=== PATIENT | female | born 1970 | race African-American/Black ===

== ENCOUNTER 2016-12-17 17:43 | Emergency (ER) | payer MEDICAID ==
[~2016-12-17] VITALS: Ht 170.2 cm; Wt 82.7 kg
[2016-12-17 17:44] VITALS: BP 130/68; PULSE 77; RESP 16; TEMP 98.2; O2SAT 96
[2016-12-17] MEDS ORDERED: ADVA500A INH (17:54)
[2016-12-17] MEDS ORDERED: ALBUAER3 INH (17:54)
[2016-12-17] MEDS ORDERED: methylPREDNISolone SOD SUCC 125 MG/2 ML VIAL IM ONE (18:15)
[2016-12-17] MEDS ORDERED: PRED20 PO (18:20)
--- NOTE | 2016-12-17 18:20 | PD ---
HPI Chief Complaint: Respiratory Symptoms Time Seen by Provider: 17:56 Travel History International Travel<30 days: No Contact w/Intl Traveler<30days: No Traveled to known affect area: No History of Present Illness HPI 46-year-old female with history of anxiety, asthma here with complaint of increasing shortness of breath. [facility] and is exposed to tobacco which she typically is not. Has been having increasing wheezing, shortness of breath. Minimal to no cough. No fevers or chills. She feels tight throughout the chest. She has been using her MDI without much improvement of her symptoms prompting ER visit. [facility] Past Medical History Asthma: Yes Hypertension: Yes (HYPOTENSION) Respiratory: Yes (ASTHMA) Influenza Vaccination: Yes ?: Not LMP: NOV 14 2016 Past Surgical History Gynecologic Surgery: Yes (OVARIAN CYSTS) Other Surgery: Yes (BILATERAL FEET SURGERIES) Social History Alcohol Use: No Tobacco Use: No Substance Use: No Allergies-Medications (Allergen,Severity, Reaction): Coded Allergies: Benadryl (Verified Allergy, Severe, RESPIRATORY DISTRESS, 12/17/16) Reported Meds & Prescriptions Reported Meds & Active Scripts Active Prednisone 20 Mg Tab 40 Mg PO DAILY 5 Days Take 40 mg (2 tablets) daily for 5 days Reported Proair Hfa 8.5 GM Inh (Albuterol Sulfate) 90 Mcg/Act Aer 2 Puff INH Q4-6H PRN 108 mcg/actuation Advair Diskus Inh (Fluticasone-Salmeterol Inh) 500-50 Mcg/Blist Aer 1 Puff INH BID Rinse mouth after use. Review of Systems Except as stated in HPI: all other systems reviewed are Neg Physical Exam Narrative GENERAL: Tearful female in no acute distress SKIN: Warm and dry. HEAD: Normocephalic. EYES: No scleral icterus. No injection or drainage. ENT: Mucous membranes pink and moist. NECK supple CARDIOVASCULAR: Regular rate and rhythm. No murmur appreciated. RESPIRATORY: No accessory muscle use. Decreased throughout with minimal wheezing. GASTROINTESTINAL: Abdomen soft, non-tender, nondistended. MUSCULOSKELETAL: No obvious deformities. No edema. NEUROLOGICAL: Awake and alert. Normal speech. PSYCHIATRIC: Appropriate mood and affect; insight and judgment normal. Data Data Last Documented VS Vital Signs Date Time Temp Pulse Resp B/P Pulse Ox O2 Delivery O2 Flow Rate FiO2 12/17/16 17:44 98.2 77 16 130/68 96 Orders Methylprednisolone So Succ Inj (Solumedr (12/17/16 18:15) Albuterol-Ipratropium Neb (Duoneb Neb) (12/17/16 18:15) Electrocardiogram (12/17/16 18:10) MDM Medical Decision Making Medical Screen Exam Complete: Yes Emergency Medical Condition: Yes Medical Record Reviewed: Yes Differential Diagnosis 46-year-old female with history of anxiety, asthma here with increasing wheezing , chest tightness since being out of [facility] and exposed to tobacco over the course the last several days. Differential includes asthma exacerbation, pneumonia, anxiety, and less likely arrhythmia, ACS or PE. Narrative Course Patient placed on monitor, given DuoNeb 3, 125 mg Solu-Medrol. Twelve-lead EKG showed sinus rhythm with J-point elevation but no notable ST abnormalities, normal intervals. Patient felt improved after the before treatment and will be discharged to home with MDI and steroids 5 days. Diagnosis Primary Impression: Asthma exacerbation Referrals: Primary Care Physician as needed Patient Instructions: Asthma (ED), General Instructions Additional Instructions: Prednisone as prescribed. Continue home breathing treatments as needed. Return to the ER for the warning signs discussed. Med/Other Pt SpecificInfo: Prescription(s) given Scripts Prednisone 20 Mg Tab40 Mg PO DAILY 5 Days Ref 0 Take 40 mg (2 tablets) daily for 5 days Prov:Liza Da Silva MD 12/17/16 Disposition: 01 DISCHARGE HOME Condition: Stable Liza Da Silva MD Dec 17, 2016 18:20
[2016-12-17] MEDS: RESP: ALBUTEROL 2.5 MG/IPRATROPIUM 0.5 MG NEB (SCH) INH ×2 (18:39→18:40)
--- NOTE | 2016-12-18 14:29 | EKG ---
Date Performed: 12/17/2016 Time Performed: 18:28:22 PTAGE: 46 years EKG: Sinus rhythm EARLY REPOLARIZATION BORDERLINE ECG NO PREVIOUS TRACING DOCTOR: Rafat Gan Interpretating Date/Time 12/18/2016 14:26:29
== END 2016-12-17 19:38 | disposition home or self-care (01) ==
LOC: NEPC 17:43
DX: J45.901 Unspecified asthma with (acute) exacerbation (principal); R94.31 Abnormal electrocardiogram [ECG] [EKG]; I95.9 Hypotension, unspecified; Z77.22 Contact with and (suspected) exposure to environmental tobacco smoke (acute) (chronic)
CPT/HCPCS: 93005; 94664; 96372; 99283; J2930

== ENCOUNTER 2017-01-12 08:26 | Emergency (ER) | payer MEDICAID ==
[~2017-01-12] VITALS: Ht 170.2 cm; Wt 83.0 kg
[~2017-01-12 08:26] MED LIST: ADVA500A INH; ALBUAER3 INH; PRED20 PO
[2017-01-12 08:28] VITALS: BP 116/69; PULSE 74; RESP 20; TEMP 97.5; O2SAT 99
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
[2017-01-12] MEDS ORDERED: PROPARACAINE HCL 0.5% OPHT SOLN 15 ML BTL EACH EYE ONE (09:15)
[2017-01-12] MEDS ORDERED: IBUP800T23 PO (10:32)
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
[2017-01-12] MEDS ORDERED: ERYTOIN10 RIGHT EYE (11:33)
[2017-01-12] MEDS ORDERED: IBUPROFEN 800 MG TAB PO ONE (11:45)
== END 2017-01-12 12:18 | disposition home or self-care (01) ==
LOC: NEPB 08:26
DX: S00.83XA Contusion of other part of head, initial encounter (principal); H92.01 Otalgia, right ear
CPT/HCPCS: 70450; 70486; 84703